=== PATIENT | female | born 1940 | race Caucasian/White ===

== ENCOUNTER 2021-10-10 06:32 | Inpatient (IN) ==
[2021-10-10] MEDS ORDERED: IOPAMIDOL 100 ML BOTTLE IV ONE (06:33)
--- NOTE | 2021-10-10 07:14 | Emergency Department Note ---
HPI General Chief complaint: Trauma Stated complaint: fall Time Seen by Provider: 10/10/21 06:53 Source: patient and family Mode of arrival: ambulatory Limitations: no limitations History of Present Illness HPI Narrative: 81-year-old female presenting after a fall. Patient reports she tripped and fell onto her right side on the concrete last night. She comes in today because she is having increased pain in the right side of her chest and rib area. She states she did hit her head but did not lose consciousness. Not on anticoagulation. No cough, fever, shortness of breath, vision changes, numbness, weakness, or paresthesias. Has not taken anything for pain. Related Data Home Medications Medication Instructions Recorded Confirmed ketotifen fumarate 0.025 % (0.035 1 drp ophthalmic (eye) BID 09/29/14 10/10/21 %) eye drops multivitamin 1 tab-cap PO QDAY 05/19/15 10/10/21 omeprazole 20 mg capsule,delayed 20 mg PO BID 10/06/21 10/10/21 release tramadol 50 mg tablet 50 mg PO TID 10/06/21 10/10/21 Lactobacillus 1 cap PO QDAY 10/10/21 10/10/21 acidophilus-Bifidobac.animalis 2.5 billion cell capsule (Daily Probiotic) alendronate 70 mg tablet 1 tab PO QDAY 10/10/21 10/10/21 aspirin 81 mg capsule 81 mg PO QDAY 10/10/21 10/10/21 biotin 5,000 mcg sublingual tablet 5,000 mcg sublingual QDAY 10/10/21 10/10/21 cranberry 400 mg capsule 400 mg PO QDAY 10/10/21 10/10/21 magnesium 200 mg tablet 400 mg PO QDAY 10/10/21 10/10/21 triamcinolone acetonide 55 mcg 2 spray intranasal QDAY 10/10/21 10/10/21 nasal spray aerosol (24 Hour Nasal Allergy) vitamin B complex 1 cap PO DAILY 10/10/21 10/10/21 Previous Rx's Medication Instructions Recorded fexofenadine 180 mg tablet 180 mg PO QDAY #60 tabs 06/23/15 celecoxib 200 mg capsule 200 mg PO QDAY #30 caps 03/16/17 montelukast 10 mg tablet 10 mg PO QPM #30 tabs 03/16/17 C E2 0.4mg/E5 1.6 1 cap PO .COMPLEX ##30 05/29/17 misoprostol 200 mcg tablet 200 mcg PO BIDCC #60 tabs 03/12/18 C-progesterone 50 mg/0.1 mL See Rx Instructions topical QDAY 03/20/18 ##9 Allergies Allergy/AdvReac Type Severity Reaction Status Date / Time clarithromycin Allergy Mild Unknown Unverified 10/10/21 06:35 clindamycin Allergy Unknown Unknown Unverified 10/06/21 10:50 Diclofenac Allergy Unknown Unknown Unverified 10/06/21 10:50 ezetimibe [From Vytorin] Allergy Unknown Joint Pain Verified 10/06/21 10:50 milk Allergy Unknown Unknown Unverified 10/06/21 10:50 propoxyphene Allergy Unknown Unknown Unverified 10/06/21 10:50 simvastatin [From Vytorin] Allergy Unknown Joint Pain Verified 10/06/21 10:50 Sulfa (Sulfonamide Allergy Unknown Hives Verified 10/06/21 10:50 Antibiotics) wheat Allergy Unknown Itching Unverified 10/06/21 10:50 tramadol AdvReac Severe Confusion Verified 10/06/21 10:50 cephalexin AdvReac Mild Itching Verified 10/10/21 06:35 Cleocin-T Allergy Unknown Swelling Uncoded 10/06/21 10:50 of the Eye corn extract Allergy Unknown Itching Uncoded 10/06/21 10:50 Darvocet A500 Allergy Unknown Hives Uncoded 10/06/21 10:50 Review of Systems ROS ROS Narrative: Narrative: Constitutional: Denies fever or chills Eyes: Denies vision change ENT ED: Denies throat pain Cardiovascular: Denies chest pain Respiratory: Denies shortness of breath or cough Gastrointestinal: Denies abdominal pain, nausea or vomiting Genitourinary: Denies dysuria Musculoskeletal: Denies back pain Integumentary: Denies rash Neurological: Denies headache or weakness Psychiatric: Denies anxiety Endocrine: Denies fatigue Hematological/Lymphatic: Denies easy bruising PFSH Narrative Patient History Narrative: Narrative: Medical/Surgical/Family History All Active Problems (Updated 10/10/21 @ 15:59 by Darrin Tran MD) Closed traumatic fracture of ribs of right side with pneumothorax (Acute) Lumbar radiculopathy (Chronic) Spinal stenosis, lumbar (Chronic) Trochanteric bursitis, right hip (Chronic) Sinus pressure (Chronic) Runny nose (Chronic) Dyspepsia (Chronic) History of appetite changes (Chronic) Abdominal pain (Chronic) Greater trochanteric pain syndrome (Chronic) Lumbar disc disorder (Chronic) Lumbosacral radiculopathy (Chronic) Osteoarthrosis (Chronic) Osteoporosis (Chronic) Nausea & vomiting (Chronic) Chronic GERD (Chronic) Hernia, hiatal (Chronic) Sinusitis, chronic (Chronic) Actinic keratosis (Chronic) Osteopenia (Chronic) Onychomycosis (Chronic) Trochanteric bursitis of left hip (Chronic) Rotator cuff rupture, complete (Chronic) Radiculopathy, lumbosacral or thoracic (Chronic) Osteoarthrosis, shoulder region (Chronic) Menopausal syndrome (Chronic) Lumbar disc disease (Chronic) Joint pain (Chronic) Hyperlipidemia (Chronic) 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 Arreola Greater trochanteric pain syndrome Hernia, hiatal History of appetite changes Hyperlipidemia Joint pain Arthritis acute/chronic multiple sites Lumbar disc disorder Lumbar radiculopathy Lumbosacral radiculopathy Menopausal syndrome Menopause/menopausal symptoms Nausea & vomiting Onychomycosis Osteoarthrosis Osteoarthrosis, shoulder region Osteoarthrosis, not specified whether primary or secondary; shoulder region Osteopenia Osteoporosis Radiculopathy, lumbosacral or thoracic Left lumbar Runny nose Sinus pressure Sinusitis, chronic Spinal stenosis, lumbar Trochanteric bursitis of left hip 01/21/2014. Dr. Devonte Whatley; greater left. Trochanteric bursitis, right hip Surgical History (Updated 09/22/21 @ 08:50 by Allie Jett) History of appendectomy 12/25/2013 Dr. Whatley History of fundoplication History of herniorrhaphy 12/25/2013 Dr. Whatley History of hysterectomy History of repair of hiatal hernia Recorded 04/10/08; fundoplication History of repair of rotator cuff Recorded 04/30/06 History of shoulder surgery RT (12/25/2013 Dr. Whatley) History of surgery 01/08 Trochanteric Bursa Injection Bilat w/o sed 01/11/1601/08 LESI #3 L4-5 w/o sed 01/11/1611/08 Trochanteric Bursa Injection Bilat w/o sed 11/08/1511/08 LESI #2 L4-5 w/o sed 11/08/1509/08 LESI #1 L4-5 w/o sed 09/02/201507/09 LESI #3 L3-4 w/o sed 07/01/201505/11 LESI #2 L4-5, Left dir. w/o sed 05/06/201503/09 LESI #1 L4-5, Left dir. w/o sed 03/01/201512/08 LESI #3 L4-5 w/o sed 12/02/201411/07 LESI #2 L4-5 w/o sed 11/04/201409/07 Intraarticular Joint Injection Left Hip w/o sed 09/16/201409/07 LESI #1 L5-S1 w/o sed 08/24/1406/07 Trochanteric Bursa Injection, Left w/o sed 06/03/201406/07 LESI #3 L4-5 w/o sed 06/03/201401/06 Trochanteric Bursa Injection, Left 01/21/201401/06 LESI #2 L4-5 w/o sed 01/21/201401/06 LESI #1 L4-5, left dir. w/o sed 12/29/2013 Lumbar disc disease Lumbar region disc disease Rotator cuff rupture, complete Recorded 04/10/08; Injured when tripped by her partner while square dancing; surgically repaired Family History (Updated 10/06/21 @ 15:20 by Kristen Padilla) Mother Malignant neoplasm of female breast 12/25/2013 Dr. Whatley Diabetes mellitus 12/25/2013 Dr. Whatley History of alcohol abuse Unknown Disorder of connective tissue Sjogrens disease Hemochromatosis Sjogren's syndrome Sister Diabetes mellitus Social History Smoking Status: Never smoker Alcohol Intake Frequency: does not drink Substance Use: does not use Exam Narrative Narrative: Narrative: General Limitations: no limitations General appearance: Present alert and in no apparent distress Head Head: Present atraumatic and normocephalic Eye Eye: Present normal appearance, PERRL and EOMI; Absent scleral icterus, conjunctival injection or nystagmus ENT ENT: Present mucous membranes moist Neck Neck: Present normal inspection, full ROM and trachea midline; Absent tenderness or lymphadenopathy Chest Chest: Present symmetric chest wall rise and other (Tenderness to palpation over the right lateral ribs, no deformity noted.) Respiratory Respiratory: Present normal lung sounds bilaterally; Absent respiratory distress, rales/crackles, wheezes, stridor or accessory muscle use Cardiovascular Cardiovascular: Present regular rate and normal rhythm; Absent systolic murmur or diastolic murmur Adbominal Abdominal: Present soft; Absent distention, tenderness, guarding, rebound or rigidity Extremities Extremities: Present normal inspection and full ROM; Absent pretibial edema Back Back: Absent CVA tenderness (R), CVA tenderness (L) or spinous process te nderness Neurological Neurological: Present alert, oriented X3 and CN II-XII intact; Absent motor sensory deficit Psychiatric Psychiatric: Present normal affect and normal mood Skin Skin: Present warm (WNL) and dry Course Consultations Consultation #1: Dr. Mcclain, general surgery Time: 15:00 Vital Signs Vital signs: Vital Signs Temperature 97.8 F 10/10/21 06:32 Pulse Rate 90 10/10/21 06:32 Respiratory Rate 16 10/10/21 06:32 Blood Pressure 134/77 10/10/21 06:32 Pulse Oximetry (%) 97 10/10/21 06:32 Oxygen Delivery Method 10/10/21 06:32 Temperature 97.8 F 10/10/21 06:32 Pulse Rate 79 10/10/21 16:01 Respiratory Rate 17 10/10/21 12:36 Blood Pressure 118/70 10/10/21 16:01 Pulse Oximetry (%) 98 10/10/21 16:01 Oxygen Delivery Method 10/10/21 06:32 [facility] Narrative Medical decision making narrative: 81-year-old female presenting with right-sided rib pain after a fall. Vital signs are normal, no hypoxia. No neurologic deficits on exam and no neck tend erness. Will obtain x-rays of the right ribs and chest, and reevaluate. X-ray of the chest and right ribs show acute nondisplaced fractures of the right fourth through ninth ribs with a 10% pneumothorax. Patient was placed on 2L O2 via nasal cannula. I discussed these findings with Dr. Mcclain of general surgery who recommends obtaining CT brain and CTs of the chest, abdomen and pelvis. CTs obtained which show a right 15% pneumothorax that appears unchanged from the chest x-ray earlier this morning. Mild atelectasis noted in the inferior right lung, no effusions, infiltrates, or contusions. CT brain with no acute findings. Labs obtained which were unremarkable. I spoke again with Dr. Mcclain of surgery who will evaluate the patient. Dr. Mcclain evaluated the patient in the ED and will admit for pain control and monitoring. Patient updated with plan of care. Lab Data Lab results reviewed: Yes I reviewed the patient's lab results. Result diagrams: 10/10/21 11:52 10/10/21 11:52 Labs: Lab Results 10/10/21 10/10/21 Range/Units 11:52 11:52 WBC 10.4 (4.5-11.0) K/mcL RBC 4.07 (3.59-5.38) M/mcL Hgb 11.9 (11.2-15.7) g/dL Hct 38.4 (34.1-44.9) % MCV 94.3 (80.0-100.0) fL MCH 29.2 (26.0-34.0) pg MCHC 31.0 (31.0-36.0) g/dL RDW 13.7 (11.5-14.5) % Plt Count 267 (140-440) K/mcL MPV 8.5 (7.4-10.4) fL Immature Gran % (Auto) 0.6 H (0.0-0.5) % Neut % (Auto) 70.4 (38.0-78.0) % Lymph % (Auto) 17.7 (15.5-49.0) % [place] % (Auto) 9.8 (1.0-12.0) % Eos % (Auto) 0.9 (0.0-7.0) % Baso % (Auto) 0.6 (0.0-2.0) % Lymph # (Auto) 1.84 (1.50-4.80) K/mcL [place] # (Auto) 1.02 H (0.10-0.90) K/mcL Eos # (Auto) 0.09 (0.00-0.70) K/mcL Baso # (Auto) 0.06 (0.00-0.30) K/mcL Immature Gran # 0.06 H (0.00-0.05) K/mcl Absolute Neutrophils 7.37 (1.80-8.00) K/mcL Sodium 133 (133-145) mmol/L Potassium 4.3 (3.3-5.1) mmol/L Chloride 99 (96-108) mmol/L Carbon Dioxide 24 (22-30) mmol/L Anion Gap 10.0 (8.0-16.0) BUN 14 (8-23) mg/dL Creatinine 0.7 (0.6-1.1) mg/dL GFR Calculation 82 Glucose 104 (70-105) mg/dL Calcium 9.7 (8.6-10.4) mg/dL Total Bilirubin 0.4 (0.1-1.0) mg/dL AST 35 H (<32) U/L ALT 30 (<40) U/L Alkaline Phosphatase 42 (39-117) U/L Total Protein 6.5 (5.9-8.4) gm/dL Albumin 3.9 (3.2-5.2) gm/dL Globulin 2.6 (2.2-3.7) gm/dL Albumin/Globulin Ratio 1.5 (1.0-2.3) Radiology Data Radiology results reviewed: Yes I reviewed the patient's radiology results. Radiology results narrative: Ordering Physician:Darrin Tran M.D. Date of Service:10/10/21 Procedure(s):XR ribs RT w/ PA chest CLINICAL INFORMATION: Trauma-fall now with right chest wall pain COMPARISON: None. TECHNIQUE: PA chest and four views of the right ribs FINDINGS: The heart size, mediastinum and pulmonary vessels are unremarkable. The lungs are clear. 10% right apical pneumothorax appreciated. Acute nondisplaced fracture of the anterior right fourth fifth sixth seventh, eighth and ninth ribs appreciated. IMPRESSION: 10% right pneumothorax. Acute nondisplaced fractures of the right fourth through ninth ribs Interpreted and Authenticated by: Aidan Means 10/10/21 Ordering Physician:Darrin Tran M.D. Date of Service:10/10/21 Procedure(s):CT chest abdomen pelvis w con CLINICAL INFORMATION: Trauma COMPARISON: None. TECHNIQUE: 80 cc of Isovue-370 were injected intravenously, and 50 seconds later, 0.625 mm helical slices were obtained from the lung apices through the subtrochanteric regions of the femurs. Following reconstruction, 2.5 mm sagittal, coronal and axial reformatted images were processed and reviewed at multiple windows and levels. 7 mm MIP reconstructions were obtained through the lungs to optimize nodule detection.The exam was performed using radiation dose optimization techniques including, but not limited to, automated exposure control, adjustment of the mA and/or kV according to patient size and use of iterative reconstruction technique. FINDINGS: Pulmonary parenchymal windows show small (approximately 15%) right pneumothorax-likely unchanged from the plain film approximately six hours prior. There is minor scattered atelectasis posterior periphery of the right lung. No infiltrates or contusions. No effusions. The mediastinal windows show moderate hiatal hernia. The heart is normal in size. The pulmonary arteries are well-opacified and normal in diameter no evidence of embolus. Thoracic aorta is normal diameter with diffuse intimal thickening. There is no mediastinal hemorrhage air or adenopathy. The thyroid is grossly normal. Images through the abdomen show mild fatty change within the liver. No laceration or other posttraumatic change. The gallbladder and bile ducts, both kidneys, adrenal glands, spleen, pancreas and aorta, including aortic branches are normal in size configuration and attenuation without focal lesion. There is no free air, free fluid or adenopathy Pelvic images show hysterectomy/oophorectomy changes. Small cystocele is noted-the urinary bladder is, otherwise, normal. Stomach, small bowel, large bowel and appendix region are all unremarkable. Bone windows show no fracture or other acute posttraumatic change throughout the chest, abdomen or pelvis. L3-4 and L4-5 anterior/posterior fusion are anatomically aligned. IMPRESSION: 1. 15% right pneumothorax unchanged from plain film six hours prior. There is minor atelectasis in the inferior right lung 2. Moderate hiatal hernia. 3. No posttraumatic changes seen in the abdomen or pelvis. 4. Small cystocele. Interpreted and Authenticated by: Aidan Measn 10/10/21 Ordering Physician:Darrin Tran M.D. Date of Service:10/10/21 Procedure(s):CT head/brain wo con CLINICAL INFORMATION: Trauma COMPARISON: Brain MRI 01/23/2006 TECHNIQUE: 2.5 mm helical slices were obtained in the skull base to vertex. Following reconstruction, axial reformatted images were reviewed at bone and parenchymal windows. The exam was performed using radiation dose optimization techniques including, but not limited to, automated exposure control, adjustment of the mA and/or kV according to patient size and use of iterative reconstruction technique. FINDINGS: The ventricles, sulci, fissures, and cisterns are symmetrically enlarged compatible with mild age-related atrophy. No extra-axial fluid collections are identified. Mild patchy chronic ischemic changes, in the deep cerebral white matter, are expected for age. There is no hemorrhage, mass effect, or edema. Bone windows show no osseous abnormality. IMPRESSION: Mild atrophy and chronic ischemic changes in the deep cerebral white matter-expected for age. No acute findings Interpreted and Authenticated by: Aidan Means 10/10/21 Discharge Plan Patient/Caregiver Discharge Instructions Pt seen by MANAGER ICU/PA only: No Clinical Impression: Closed traumatic fracture of ribs of right side with pneumothorax Patient Disposition: Xfer As Inpt ([facility]) Condition: Good Follow up with: Oskar Kapadia MD [Primary Care Provider] - Prescriptions: No Action celecoxib 200 mg capsule 200 mg PO QDAY Qty: 30 12RF montelukast 10 mg tablet 10 mg PO QPM Qty: 30 12RF C E2 0.4mg/E5 1.6 capsule 1 cap PO .COMPLEX Qty: 30 12RF Rx Instructions: 1 cap PO QDAY as directed misoprostol 200 mcg tablet 200 mcg PO BIDCC Qty: 60 12RF C-progesterone 50 mg/0.1 mL See Rx Instructions TOPICAL QDAY Qty: 9 12RF Dose Instruction: TOPICAL Apply 0.1ML TOPICAL QDAY Rx Instructions: Apply 0.1ML to inner thigh TOPICAL QDAY ketotifen fumarate 0.025 % drops 1 drp OPHTHALMIC BID Rx Instructions: administer at least 8 hours apart multivitamin tablet 1 tab-cap PO QDAY fexofenadine 180 mg tablet 180 mg PO QDAY Qty: 60 3RF Hold Instructions: Doctor's Order omeprazole 20 mg capsule,delayed release(DR/EC) 20 mg PO BID tramadol 50 mg tablet 50 mg PO TID alendronate 70 mg tablet 1 tab PO QDAY Label Comments: [NO ORIGINAL SIG] triamcinolone acetonide [24 Hour Nasal Allergy] 55 mcg Aerosol,[place] 2 spray INTRANASAL QDAY cranberry 400 mg Capsule 400 mg PO QDAY Rx Instructions: administer with a meal vitamin B complex [Super B Complex] Capsule 1 cap PO DAILY aspirin 81 mg Capsule 81 mg PO QDAY magnesium 200 mg Tablet 400 mg PO QDAY Daily Probiotic 2.5 billion cell Capsule 1 cap PO QDAY biotin 5,000 mcg Tablet, Sublingual 5,000 mcg SUBLINGUAL QDAY
--- NOTE | 2021-10-10 08:16 | XRay Report ---
CLINICAL INFORMATION: Trauma-fall now with right chest wall pain COMPARISON: None. TECHNIQUE: PA chest and four views of the right ribs FINDINGS: The heart size, mediastinum and pulmonary vessels are unremarkable. The lungs are clear. 10% right apical pneumothorax appreciated. Acute nondisplaced fracture of the anterior right fourth fifth sixth seventh, eighth and ninth ribs appreciated. IMPRESSION: 10% right pneumothorax. Acute nondisplaced fractures of the right fourth through ninth ribs Interpreted and Authenticated by: Aidan Means 10/10/21
[2021-10-10 12:32] LABS: Basophils # (Auto) 0.06 K/mcL (0.00-0.30); Basophils % (Auto) 0.6 % (0.0-2.0); Eosinophils # (Auto) 0.09 K/mcL (0.00-0.70); Eosinophils % (Auto) 0.9 % (0.0-7.0); Hematocrit 38.4 % (34.1-44.9); Hemoglobin 11.9 g/dL (11.2-15.7); Lymphocytes # (Auto) 1.84 K/mcL (1.50-4.80); Lymphocytes % (Auto) 17.7 % (15.5-49.0); Mean Cell Volume 94.3 fL (80.0-100.0); Mean Platelet Volume 8.5 fL (7.4-10.4); Monocytes # (Auto) 1.02 K/mcL (0.10-0.90); Monocytes % (Auto) 9.8 % (1.0-12.0); Neutrophils % (Auto) 70.4 % (38.0-78.0); Platelet Count 267 K/mcL (140-440); RBC 4.07 M/mcL (3.59-5.38); Red Cell Distribution Width 13.7 % (11.5-14.5); WBC 10.4 K/mcL (4.5-11.0)
[2021-10-10 12:52] LABS: ALT/SGPT 30 U/L (<40); AST/SGOT 35 U/L (<32); Albumin 3.9 gm/dL (3.2-5.2); Albumin/Globulin Ratio 1.5 (1.0-2.3); Alkaline Phosphatase 42 U/L (39-117); Bilirubin,Total 0.4 mg/dL (0.1-1.0); Blood Urea Nitrogen 14 mg/dL (8-23); Calcium 9.7 mg/dL (8.6-10.4); Carbon Dioxide 24 mmol/L (22-30); Chloride 99 mmol/L (96-108); Globulin 2.6 gm/dL (2.2-3.7); Glomerular Filtration Rate 82; Glucose 104 mg/dL (70-105)
[2021-10-10] MEDS ORDERED: traMADol 50 MG TABLET PO ONE (14:09)
--- NOTE | 2021-10-10 14:39 | Cat Scan Report ---
CLINICAL INFORMATION: Trauma COMPARISON: Brain MRI 01/23/2006 TECHNIQUE: 2.5 mm helical slices were obtained in the skull base to vertex. Following reconstruction, axial reformatted images were reviewed at bone and parenchymal windows. The exam was performed using radiation dose optimization techniques including, but not limited to, automated exposure control, adjustment of the mA and/or kV according to patient size and use of iterative reconstruction technique. FINDINGS: The ventricles, sulci, fissures, and cisterns are symmetrically enlarged compatible with mild age-related atrophy. No extra-axial fluid collections are identified. Mild patchy chronic ischemic changes, in the deep cerebral white matter, are expected for age. There is no hemorrhage, mass effect, or edema. Bone windows show no osseous abnormality. IMPRESSION: Mild atrophy and chronic ischemic changes in the deep cerebral white matter-expected for age. No acute findings Interpreted and Authenticated by: Aidan Means 10/10/21
--- NOTE | 2021-10-10 15:05 | Cat Scan Report ---
CLINICAL INFORMATION: Trauma COMPARISON: None. TECHNIQUE: 80 cc of Isovue-370 were injected intravenously, and 50 seconds later, 0.625 mm helical slices were obtained from the lung apices through the subtrochanteric regions of the femurs. Following reconstruction, 2.5 mm sagittal, coronal and axial reformatted images were processed and reviewed at multiple windows and levels. 7 mm MIP reconstructions were obtained through the lungs to optimize nodule detection.The exam was performed using radiation dose optimization techniques including, but not limited to, automated exposure control, adjustment of the mA and/or kV according to patient size and use of iterative reconstruction technique. FINDINGS: Pulmonary parenchymal windows show small (approximately 15%) right pneumothorax-likely unchanged from the plain film approximately six hours prior. There is minor scattered atelectasis posterior periphery of the right lung. No infiltrates or contusions. No effusions. The mediastinal windows show moderate hiatal hernia. The heart is normal in size. The pulmonary arteries are well-opacified and normal in diameter no evidence of embolus. Thoracic aorta is normal diameter with diffuse intimal thickening. There is no mediastinal hemorrhage air or adenopathy. The thyroid is grossly normal. Images through the abdomen show mild fatty change within the liver. No laceration or other posttraumatic change. The gallbladder and bile ducts, both kidneys, adrenal glands, spleen, pancreas and aorta, including aortic branches are normal in size configuration and attenuation without focal lesion. There is no free air, free fluid or adenopathy Pelvic images show hysterectomy/oophorectomy changes. Small cystocele is noted-the urinary bladder is, otherwise, normal. Stomach, small bowel, large bowel and appendix region are all unremarkable. Bone windows show no fracture or other acute posttraumatic change throughout the chest, abdomen or pelvis. L3-4 and L4-5 anterior/posterior fusion are anatomically aligned. IMPRESSION: 1. 15% right pneumothorax unchanged from plain film six hours prior. There is minor atelectasis in the inferior right lung 2. Moderate hiatal hernia. 3. No posttraumatic changes seen in the abdomen or pelvis. 4. Small cystocele. Interpreted and Authenticated by: Aidan Means 10/10/21
[2021-10-10] MEDS ORDERED: morphine 2 MG/ML VIAL IV ONE (16:36)
--- NOTE | 2021-10-10 17:17 | General Surgery Consult Note ---
HPI Data of Consult Patient: new to practice Consult date: 10/10/21 Requesting physician: Darrin Tran Primary Care Provider: Oskar Kapadia Consult Narrative Chief complaint: Right Chest Pain Reason for consult: Traumatic Right Sided Rib Fractures with Associated Pneumothorax History of present illness: Tamiko is seen in consultation today after a fall in her home yesterday resulted in trauma to the Right Chest followed by worsening Right Sided Chest Pain. She presented to the ER today with pain and in work up was found to have Non Displaced Right Sided Rib Fractures with an Associated Pneumothorax that was estimated at 10-15%. She has undergone a Head CT as well as a CT of the Chest, Abdomen and Pelvis with no other associated injuries noted. Her overall health is fairly good with no substantial Cardiac or Pulmonary issues. She is not on any oral anticoagulants. cc:: CC: Constitutional Additional comments: no change EENT Eyes: Absent change in vision Additional comments: no ENT based changes, has some allergic rhinitis and uses seasonal allergy medications Breasts Additional comments: no changes Cardiovascular Cardiovascular: Absent chest pain at rest or chest pain with activity Respiratory Additional comments: see HPI Gastrointestinal Additional comments: no changes at this time Genitourinary Additional comments: no hematuria Musculoskeletal Additional comments: has a femur ariela per her history and trouble with intermittent weakness on the side "the leg gives out" and that is currently under work up Integumentary Additional comments: no skin changes Neurological Additional comments: no recent issues, has not had strokes Psychiatric Additional comments: no changes PFSH PFSH All Active Problems (Updated 10/10/21 @ 15:59 by Darrin Tran MD) Closed traumatic fracture of ribs of right side with pneumothorax (Acute) Lumbar radiculopathy (Chronic) Spinal stenosis, lumbar (Chronic) Trochanteric bursitis, right hip (Chronic) Sinus pressure (Chronic) Runny nose (Chronic) Dyspepsia (Chronic) History of appetite changes (Chronic) Abdominal pain (Chronic) Greater trochanteric pain syndrome (Chronic) Lumbar disc disorder (Chronic) Lumbosacral radiculopathy (Chronic) Osteoarthrosis (Chronic) Osteoporosis (Chronic) Nausea & vomiting (Chronic) Chronic GERD (Chronic) Hernia, hiatal (Chronic) Sinusitis, chronic (Chronic) Actinic keratosis (Chronic) Osteopenia (Chronic) Onychomycosis (Chronic) Trochanteric bursitis of left hip (Chronic) Rotator cuff rupture, complete (Chronic) Radiculopathy, lumbosacral or thoracic (Chronic) Osteoarthrosis, shoulder region (Chronic) Menopausal syndrome (Chronic) Lumbar disc disease (Chronic) Joint pain (Chronic) Hyperlipidemia (Chronic) 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 Arreola Greater trochanteric pain syndrome Hernia, hiatal History of appetite changes Hyperlipidemia Joint pain Arthritis acute/chronic multiple sites Lumbar disc disorder Lumbar radiculopathy Lumbosacral radiculopathy Menopausal syndrome Menopause/menopausal symptoms Nausea & vomiting Onychomycosis Osteoarthrosis Osteoarthrosis, shoulder region Osteoarthrosis, not specified whether primary or secondary; shoulder region Osteopenia Osteoporosis Radiculopathy, lumbosacral or thoracic Left lumbar Runny nose Sinus pressure Sinusitis, chronic Spinal stenosis, lumbar Trochanteric bursitis of left hip 01/21/2014. Dr. Devonte Whatley; greater left. Trochanteric bursitis, right hip Surgical History (Updated 09/22/21 @ 08:50 by Allie Jett) History of appendectomy 12/25/2013 Dr. Whatley History of fundoplication History of herniorrhaphy 12/25/2013 Dr. Whatley History of hysterectomy History of repair of hiatal hernia Recorded 04/10/08; fundoplication History of repair of rotator cuff Recorded 04/30/06 History of shoulder surgery RT (12/25/2013 Dr. Whatley) History of surgery 01/08 Trochanteric Bursa Injection Bilat w/o sed 01/11/1601/08 LESI #3 L4-5 w/o sed 01/11/1611/08 Trochanteric Bursa Injection Bilat w/o sed 11/08/1511/08 LESI #2 L4-5 w/o sed 11/08/1509/08 LESI #1 L4-5 w/o sed 09/02/201507/09 LESI #3 L3-4 w/o sed 07/01/201505/11 LESI #2 L4-5, Left dir. w/o sed 05/06/201503/09 LESI #1 L4-5, Left dir. w/o sed 03/01/201512/08 LESI #3 L4-5 w/o sed 12/02/201411/07 LESI #2 L4-5 w/o sed 11/04/201409/07 Intraarticular Joint Injection Left Hip w/o sed 09/16/201409/07 LESI #1 L5-S1 w/o sed 08/24/1406/07 Trochanteric Bursa Injection, Left w/o sed 06/03/201406/07 LESI #3 L4-5 w/o sed 06/03/201401/06 Trochanteric Bursa Injection, Left 01/21/201401/06 LESI #2 L4-5 w/o sed 01/21/201401/06 LESI #1 L4-5, left dir. w/o sed 12/29/2013 Lumbar disc disease Lumbar region disc disease Rotator cuff rupture, complete Recorded 04/10/08; Injured when tripped by her partner while square dancing; surgically repaired Family History (Updated 10/06/21 @ 15:20 by Kristen Padilla) Mother Malignant neoplasm of female breast 12/25/2013 Dr. Whatley Diabetes mellitus 12/25/2013 Dr. Whatley History of alcohol abuse Unknown Disorder of connective tissue Sjogrens disease Hemochromatosis Sjogren's syndrome Sister Diabetes mellitus Social History (Updated 10/06/21 @ 15:20 by Kristen Padilla) marital status: education level: high school occupational status: retired smoking status: Never smoker alcohol intake frequency: does not drink substance use type: does not use MEDS/ALLERGIES Home Medications and Allergies Home Medications Medication Instructions Recorded Confirmed Type ketotifen fumarate 0.025 % (0.035 1 drp ophthalmic (eye) BID 09/29/14 10/10/21 History %) eye drops multivitamin 1 tab-cap PO QDAY 05/19/15 10/10/21 History fexofenadine 180 mg tablet 180 mg PO QDAY #60 tabs 06/23/15 10/10/21 Rx celecoxib 200 mg capsule 200 mg PO QDAY #30 caps 03/16/17 10/10/21 Rx montelukast 10 mg tablet 10 mg PO QPM #30 tabs 03/16/17 10/10/21 Rx C E2 0.4mg/E5 1.6 1 cap PO .COMPLEX ##30 05/29/17 10/10/21 Rx misoprostol 200 mcg tablet 200 mcg PO BIDCC #60 tabs 03/12/18 10/10/21 Rx C-progesterone 50 mg/0.1 mL See Rx Instructions topical QDAY 03/20/18 10/10/21 Rx ##9 omeprazole 20 mg capsule,delayed 20 mg PO BID 10/06/21 10/10/21 History release tramadol 50 mg tablet 50 mg PO TID 10/06/21 10/10/21 History Lactobacillus 1 cap PO QDAY 10/10/21 10/10/21 History acidophilus-Bifidobac.animalis 2.5 billion cell capsule (Daily Probiotic) alendronate 70 mg tablet 1 tab PO QDAY 10/10/21 10/10/21 History aspirin 81 mg capsule 81 mg PO QDAY 10/10/21 10/10/21 History biotin 5,000 mcg sublingual tablet 5,000 mcg sublingual QDAY 10/10/21 10/10/21 History cranberry 400 mg capsule 400 mg PO QDAY 10/10/21 10/10/21 History magnesium 200 mg tablet 400 mg PO QDAY 10/10/21 10/10/21 History triamcinolone acetonide 55 mcg 2 spray intranasal QDAY 10/10/21 10/10/21 History nasal spray aerosol (24 Hour Nasal Allergy) vitamin B complex 1 cap PO DAILY 10/10/21 10/10/21 History Allergies Allergy/AdvReac Type Severity Reaction Status Date / Time clarithromycin Allergy Mild Unknown Unverified 10/10/21 06:35 clindamycin Allergy Unknown Unknown Unverified 10/06/21 10:50 Diclofenac Allergy Unknown Unknown Unverified 10/06/21 10:50 ezetimibe [From Vytorin] Allergy Unknown Joint Pain Verified 10/06/21 10:50 milk Allergy Unknown Unknown Unverified 10/06/21 10:50 propoxyphene Allergy Unknown Unknown Unverified 10/06/21 10:50 simvastatin [From Vytorin] Allergy Unknown Joint Pain Verified 10/06/21 10:50 Sulfa (Sulfonamide Allergy Unknown Hives Verified 10/06/21 10:50 Antibiotics) wheat Allergy Unknown Itching Unverified 10/06/21 10:50 tramadol AdvReac Severe Confusion Verified 10/06/21 10:50 cephalexin AdvReac Mild Itching Verified 10/10/21 06:35 Cleocin-T Allergy Unknown Swelling Uncoded 10/06/21 10:50 of the Eye corn extract Allergy Unknown Itching Uncoded 10/06/21 10:50 Darvocet A500 Allergy Unknown Hives Uncoded 10/06/21 10:50 Physical Examination Vital Signs Vital signs: Temp Pulse Resp BP Pulse Ox O2 Del Method 97.8 F 79 17 118/70 98 10/10/21 06:32 10/10/21 16:01 10/10/21 12:36 10/10/21 16:01 10/10/21 16:01 10/10/21 06:32 General physical appearance General physical exam: other (looks well, non toxic, NAD ) Eyes Eye exam: normal ocular movement and other (aniteric slcera ) ENT ENT exam: normal pinna and normal nares Head Head exam IM: Present atraumatic and normocephalic Head exam expanded IM: Present contusion (mild swelling at the Right Parietal area where she fell, no significant hematoma or laceration seen ) Neck Neck exam: no lymphadenopathy Cardiovascular Cardiovascular exam IM: Present normal rate and rhythm Respiratory Respiratory exam: other (normal respiratory effort, no evident distress ) Abdomen Abdomen: Present soft and non tender Genitourinary Genitourinary (Female): Present other (no CVA tenderness ) Integumentary Integumentary: Present other (normal appearing intact skin ) Neurologic Neurologic: Present other (appears grossly intact ) Psychiatric Psychiatric: Present oriented to time, oriented to person and oriented to place Results Labs Result diagrams: 10/10/21 11:52 10/10/21 11:52 Labs: Abnormal lab results 10/10/21 10/10/21 Range/Units 11:52 11:52 Immature Gran % (Auto) 0.6 H (0.0-0.5) % Bremer # (Auto) 1.02 H (0.10-0.90) K/mcL Immature Gran # 0.06 H (0.00-0.05) K/mcl AST 35 H (<32) U/L Diabetes panel 10/10/21 Range/Units 11:52 Sodium 133 (133-145) mmol/L Potassium 4.3 (3.3-5.1) mmol/L Chloride 99 (96-108) mmol/L Carbon Dioxide 24 (22-30) mmol/L BUN 14 (8-23) mg/dL Creatinine 0.7 (0.6-1.1) mg/dL Glucose 104 (70-105) mg/dL Calcium 9.7 (8.6-10.4) mg/dL AST 35 H (<32) U/L ALT 30 (<40) U/L Alkaline Phosphatase 42 (39-117) U/L Total Protein 6.5 (5.9-8.4) gm/dL Albumin 3.9 (3.2-5.2) gm/dL Calcium panel 10/10/21 Range/Units 11:52 Calcium 9.7 (8.6-10.4) mg/dL Albumin 3.9 (3.2-5.2) gm/dL Pituitary panel 10/10/21 Range/Units 11:52 Sodium 133 (133-145) mmol/L Potassium 4.3 (3.3-5.1) mmol/L Chloride 99 (96-108) mmol/L Carbon Dioxide 24 (22-30) mmol/L BUN 14 (8-23) mg/dL Creatinine 0.7 (0.6-1.1) mg/dL Glucose 104 (70-105) mg/dL Calcium 9.7 (8.6-10.4) mg/dL Adrenal panel 10/10/21 Range/Units 11:52 Sodium 133 (133-145) mmol/L Potassium 4.3 (3.3-5.1) mmol/L Chloride 99 (96-108) mmol/L Carbon Dioxide 24 (22-30) mmol/L BUN 14 (8-23) mg/dL Creatinine 0.7 (0.6-1.1) mg/dL Glucose 104 (70-105) mg/dL Calcium 9.7 (8.6-10.4) mg/dL Total Bilirubin 0.4 (0.1-1.0) mg/dL AST 35 H (<32) U/L ALT 30 (<40) U/L Alkaline Phosphatase 42 (39-117) U/L Total Protein 6.5 (5.9-8.4) gm/dL Albumin 3.9 (3.2-5.2) gm/dL All other labs normal. A/P Assessment and plan (1) Closed traumatic fracture of ribs of right side with pneumothorax: Assessment and plan: Blunt Right Chest Trauma secondary to Fall Non displaced Rib Fractures with Small Associated Pneumothorax and no effusion Agree with admission for pain control, pulmonary toilet and observational mgmt of Pneumothorax for now. Will re check films in AM and if pneumo worse then will likely need intervention Will ask PT to assess for home safety as well Issues discussed with her at length including potential need for Chest Tube Placement, Transfer and other potential issues pending clinical course Status: Acute Time Spent With Patient Time: Total time spent is greater than 50% in coordination of care (as documented) at patient's floor/unit and/or counseling patient:
[2021-10-10] MEDS ORDERED: ONDANSETRON 4 MG/2 ML VIAL IV PRN (17:28)
[2021-10-10] MEDS ORDERED: oxyCODONE HCL 5 MG TABLET PO PRN (17:33)
[2021-10-10] MEDS: DEXTROSE 5%-LR 1,000 ML IV SCH (18:47)
[2021-10-10] MEDS ORDERED: SENNOSIDES 1 TABLET PO SCH (21:00)
[2021-10-10] MEDS: oxyCODONE 10 MG TAB.ER.12H PO SCH (22:49)
[2021-10-10] MEDS: PATIENTS OWN MEDICATION 1 DOSE MISCELL OU SCH (22:49)
[2021-10-10] MEDS: DOCUSATE SODIUM 100 MG CAPSULE PO SCH (22:49)
[2021-10-10] MEDS: diphenhydrAMINE 25 MG CAPSULE PO PRN (22:49)
[2021-10-10] MEDS: 0.9 % SODIUM CHLORIDE 10 ML SYRINGE IV SCH (22:50)
[2021-10-11] MEDS: HYDROmorphone 0.5 MG/0.5 ML SYRINGE IV PRN ×2 (03:09→07:07)
[2021-10-11] MEDS: 0.9 % SODIUM CHLORIDE 10 ML SYRINGE IV SCH ×3 (05:56→20:40)
[2021-10-11] MEDS: DEXTROSE 5%-LR 1,000 ML IV SCH (07:41)
--- NOTE | 2021-10-11 09:12 | XRay Report ---
CLINICAL INFORMATION: Follow-up right pneumothorax COMPARISON: Chest and right RIBS from yesterday (10/10/2021 TECHNIQUE: PA and Lateral views FINDINGS: The heart size and pulmonary vessels are unremarkable. Moderate hiatal hernia appreciated The lungs are clear. 10% right pneumothorax is unchanged. There are no effusions. The known nondisplaced fractures of the right fourth through ninth ribs are not well visualized on these films. IMPRESSION: No change in 10% right pneumothorax from yesterday's exam. Moderate hiatal hernia Interpreted and Authenticated by: Aidan Means 10/11/21
[2021-10-11] MEDS: oxyCODONE 10 MG TAB.ER.12H PO SCH ×2 (09:13→19:54)
[2021-10-11] MEDS: DOCUSATE SODIUM 100 MG CAPSULE PO SCH (09:13)
[2021-10-11] MEDS: diphenhydrAMINE 25 MG CAPSULE PO PRN ×2 (09:15→22:25)
[2021-10-11] MEDS: PATIENTS OWN MEDICATION 1 DOSE MISCELL OU SCH ×2 (11:33→19:54)
[2021-10-11] MEDS: oxyCODONE HCL 5 MG TABLET PO PRN ×3 (12:44→22:30)
--- NOTE | 2021-10-11 13:00 | General Surgery Progress Note ---
SUBJECTIVE Subjective Patient information: Note initiated : 10/11/21 at 815 am Service Date, if different from initiated Date: [] Patient: Tamiko Muller 81 y/o F admitted on 10/10/21 for Fall. Chief Complaint: [] No SOB, pain better with meds Constitutional Vitals: Vital Signs Temp Pulse Resp BP Pulse Ox O2 Del Method O2 Flow Rate 97.9 F 83 16 131/75 93 2 10/11/21 11:35 10/11/21 11:35 10/11/21 11:35 10/11/21 11:35 10/11/21 11:35 10/11/21 04:00 10/11/21 04:00 Period Temp Pulse Resp BP Sys/Avina Pulse Ox O2 Del Method O2 Flow Rate Last 24 Hr 97.6 F-98.9 F 74-92 16-26 114-163/68-111 93-100 Nasal Cannula- Room Air 2 Intake and Output 10/10/21 10/11/21 10/11/21 21:59 05:59 13:59 Intake Total 200 968 Output Total 0 300 150 Balance 0 -100 818 Weight 113 lb 4.8 oz Intake & Output: Intake & Output 10/10/21 10/11/21 10/11/21 21:59 05:59 13:59 Intake Total 200 968 Output Total 0 300 150 Balance 0 -100 818 Weight 113 lb 4.8 oz Intake: IV 968 Dextrose 5%-Lactated Ringers 1, 968 000 ml @ 75 mls/hr IV .[id number] [facility] Rx#:[id number] Oral 200 Output: Void Amount 300 150 # of times incontinent of urine 0 Other: Meal Breakfast Percent of Meal Consumed 100% Feeding Ability Independent Urine Appearance Clear Clear Clear Urine Color Bright Yellow Bright Yellow Pale Urine Odor Normal # Voids 1 Exam: she loosk well, NAD Respiratory Additional comments: non labored, no distress Cardiovascular Cardiovascular exam: Present RRR GI/Abdominal Additional comments: soft and non tender, non distended A/P Narrative A/P Narrative: HD #2 post foall with rib fractures and associated Pneumo CXR shows no change with small residual pneumo at 10% - options discussed at length including interventional vs observational mgmt, discharge today vs staying longer and others as well Continue O2 via NC Re check plain films in AM Time Spent With Patient Time: Total time spent is greater than 50% in coordination of care (as documented) at patient's floor/unit and/or counseling patient:
[2021-10-11] MEDS: LACTULOSE 20 GM/30 ML ORAL.SOL PO SCH ×2 (13:25→19:54)
[2021-10-11] MEDS: MISOPROSTOL 100 MCG TABLET PO SCH (17:47)
[2021-10-11] MEDS ORDERED: HYDROmorphone 2 MG TABLET PO PRN (19:14)
[2021-10-11] MEDS: ONDANSETRON 4 MG ODT TABLET SL PRN (19:54)
[2021-10-11] MEDS: OMEPRAZOLE 20 MG CAPSULE PO SCH (19:54)
[2021-10-11] MEDS ORDERED: ONDANSETRON 4 MG ODT TABLET ONE (20:02)
[2021-10-12] MEDS: ONDANSETRON 4 MG ODT TABLET SL PRN ×2 (04:06→09:57)
[2021-10-12] MEDS: oxyCODONE HCL 5 MG TABLET PO PRN (04:06)
[2021-10-12] MEDS: 0.9 % SODIUM CHLORIDE 10 ML SYRINGE IV SCH (07:23)
[2021-10-12] MEDS: LACTULOSE 20 GM/30 ML ORAL.SOL PO SCH (08:37)
[2021-10-12] MEDS: oxyCODONE 10 MG TAB.ER.12H PO SCH (08:38)
[2021-10-12] MEDS: OMEPRAZOLE 20 MG CAPSULE PO SCH (08:38)
[2021-10-12] MEDS: MISOPROSTOL 100 MCG TABLET PO SCH (08:38)
[2021-10-12] MEDS: PATIENTS OWN MEDICATION 1 DOSE MISCELL OU SCH (08:39)
[2021-10-12] MEDS ORDERED: LACTOBACILLUS 1 CAPSULE PO SCH (09:00)
--- NOTE | 2021-10-12 09:18 | XRay Report ---
CLINICAL INFORMATION: Follow-up right pneumothorax COMPARISON: 10/11/2021 TECHNIQUE: PA and Lateral views FINDINGS: The heart and pulmonary vessels are unremarkable. Small hiatal hernia again noted The lungs are clear. Right pneumothorax is slightly smaller 5-10%.-Slight improvement. There are are no effusions. The bones and soft tissues are within normal limits. Mild elevation right diaphragm noted IMPRESSION: 5 - 10% right pneumothorax slight improvement. Interpreted and Authenticated by: Aidan Means 10/12/21
--- NOTE | 2021-10-12 10:22 | General Surgery Progress Note ---
SUBJECTIVE Subjective Patient information: Note initiated : 10/12/21 at 10:17 am Service Date, if different from initiated Date: [] Patient: Tamiko Muller 81 y/o F admitted on 10/10/21 for Fall. Chief Complaint: [] Rib pain this am but otherwise feels well and ready for discharge. CXR this am shows some improvement with slightly smaller pneumo size. Constitutional Vitals: Vital Signs Temp Pulse Resp BP Pulse Ox O2 Del Method O2 Flow Rate 98.4 F 85 15 126/70 94 2 10/12/21 08:07 10/12/21 08:07 10/12/21 08:07 10/12/21 08:07 10/12/21 08:07 10/12/21 08:07 10/12/21 08:07 Period Temp Pulse Resp BP Sys/Avina Pulse Ox O2 Del Method O2 Flow Rate Last 24 Hr 97.1 F-98.5 F 80-87 15-18 113-140/65-75 93-100 Nasal Cannula- Nasal Cannula 1-2 Intake and Output 10/11/21 10/12/21 10/12/21 21:59 05:59 13:59 Intake Total 961 150 200 Output Total 200 500 350 Balance 761 -350 -150 Weight 113 lb 5 oz Intake & Output: Intake & Output 10/11/21 10/12/21 10/12/21 21:59 05:59 13:59 Intake Total 961 150 200 Output Total 200 500 350 Balance 761 -350 -150 Weight 113 lb 5 oz Intake: IV 761 Dextrose 5%-Lactated Ringers 1, 761 000 ml @ 75 mls/hr IV .[id number] [facility] Rx#:[id number] Oral 200 150 200 Output: Void Amount 200 500 350 Other: Meal Breakfast Percent of Meal Consumed 100% Feeding Ability Independent Urine Appearance Clear Clear Clear Urine Color Pale Pale Bright Yellow Urine Odor Normal Normal # Voids 1 Exam: Looks well, NAD Respiratory Additional comments: non labored Cardiovascular Cardiovascular exam: Present RRR GI/Abdominal Additional comments: soft and non distended, non tender, no mass Extremities Exam Additional comments: well perfused A/P Assessment and plan (1) Closed traumatic fracture of ribs of right side with pneumothorax: Status: Acute Plan HD #3 Traumatic Right Sided Pneumo with Rib Fractures Doing Well Home today with pain control Repeat CXR on Tuesday 10/17 as patient will be here already for unrelated imaging Importance of returning to the ER immediately or calling 911 for any negative or adverse change is emphasized at length and she has my personal contact info available to her Time Spent With Patient Time: Total time spent is greater than 50% in coordination of care (as documented) at patient's floor/unit and/or counseling patient:
--- NOTE | 2021-10-18 08:26 | Discharge Summary ---
DATE OF ADMISSION: 10/10/2021 DATE OF DISCHARGE: 10/12/2021 ADMITTING PHYSICIAN: Christian Mcclain MD ADMITTING DIAGNOSIS: Traumatic right rib fractures with pneumothorax. DISCHARGE DIAGNOSIS: Traumatic right rib fractures with pneumothorax. REASON FOR ADMISSION/HOSPITAL COURSE: The patient is a 81-year-old female who suffered a fall at home and then presented to the Emergency Room some time later with a fair amount of pain on the right side. She was found to have stable, nondisplaced fractures of ribs 4 through 9 as well as a small associated pneumothorax. The pneumothorax was originally described as roughly 10% without any associated effusion, without respiratory compromise and was felt to be essentially asymptomatic. Based on that, we recommended admission for pain control and observational management of the pneumothorax along with administration of supplemental 02 via nasal cannula to help it reabsorb over time. She was watched for the next several days and indeed after 48 hours her pneumothorax appeared to be decreasing rather than increasing in size and her pain control was good. At that point, decision was made for discharge with plans for follow-up x-ray in clinic soon after discharge. IN-HOSPITAL PROCEDURES: None. IN-HOSPITAL COMPLICATIONS: None apparent. DISPOSITION: To home with followup in clinic and repeat x-rays. BW:kh Job ID: [id number] Doc ID: [id number] Christian Mcclain M.D.
== END 2021-10-12 11:55 | disposition home or self-care (01) | DRG 200 ==
LOC: ED 06:32 → ICU 18:35
PROVIDERS: ADMIT Surgery Surgical Critical Care; ATTEND Surgery Surgical Critical Care